=== PATIENT | male | born 1990 | race Hispanic/Latino ===

== ENCOUNTER 2018-11-14 19:24 | Emergency (ER) | payer SELFPAY ==
[2018-11-14] MEDS ORDERED: Bacitracin Zinc 1 Packet ONE (20:24)
== END 2018-11-14 20:32 | disposition home or self-care (01) ==
LOC: ERS 19:24
DX: S61.210A Laceration without foreign body of right index finger without damage to nail, initial encounter (principal); W26.0XXA Contact with knife, initial encounter
CPT/HCPCS: 99282